=== PATIENT | female | born 2005 | race Caucasian/White ===

== ENCOUNTER 2025-06-01 20:52 | Emergency (ER) | payer BC, SELFPAY ==
[2025-06-01 20:54] VITALS: BP 101/69
[2025-06-01 21:38] VITALS: BP 105/71
[2025-06-01 21:44] VITALS: BMI 20.8
[2025-06-01 21:55] LABS: Hematocrit 34.9 % (37.0-47.0); Hemoglobin 12.3 g/dL (12.0-16.0); Mean Corp Hgb Conc. 35.2 g/dL (33.0-37.0); Mean Corpuscular Volume 85.1 fL (81.0-99.0); Nucleated Red Blood Cells % 0 %; Platelet Count 327 10^3/uL (130-400); Red Cell Dist. Width 12.9 % (11.5-14.5)
[2025-06-01 22:05] VITALS: BP 111/70
[2025-06-01 22:19] LABS: ALT (SGPT) 16 U/L (0-35); AST (SGOT) 20 U/L (14-36); Albumin 4.7 g/dl (3.5-5.0); Alkaline Phosphatase 57 U/L (38-126); Blood Urea Nitrogen 9 mg/dl (7-17); Calcium 9.9 mg/dl (8.4-10.2); Carbon Dioxide 23 mmol/L (22-30); Chloride 106 mmol/L (98-107); Estimated Creatinine Clearance 89 ml/min; Glucose 82 mg/dl (70-99); Potassium 4.2 mmol/L (3.5-5.1); Sodium 135 mmol/L (135-145); Total Protein 7.0 g/dl (6.3-8.2); eGFR > 60.00
--- NOTE | 2025-06-01 22:41 | ED.GENMED ---
History of Present Illness
General
Chief Complaint: Change in Mental Status
Source: patient
Exam Limitations: none
Time Seen by Provider: 06/01/25 22:23
History of Present Illness
History of Present Illness:
See MDM
Past History
Past History
ED Past Medical History: Psychiatric
ED Past Surgical History: None
Social History
Tobacco: Non-smoker
Alcohol: None
Phy Exam
Physical Exam
Physical Exam:
See MDM
Course
Orders/Labs/Results
Orders:
Orders
06/01/25 21:44
Complete Blood Count/With Diff Urgent
Comprehensive Metabolic Panel Routine
Wapella Urgent
Comment: ADD ON
Urinalysis Reflex To Culture Urgent
Date Specimen was Collected: 06/01/25
Time Specimen was Collected: 21:43
Comment: Clean Catch
Urine Microscopic Reflex Cult Urgent
Urine Culture Urgent
KRISHNA Source: U
Specimen Description:
Date Specimen was Collected: 06/01/25
Time Specimen was Collected: 21:43
06/01/25 22:41
CT Head W/o Iv Contrast Urgent
Comment:
Reason For Exam: intermittent confusion and headache
06/01/25 22:42
Lorazepam [Ativan] 1 mg PO NOW STA
06/01/25 22:46
Add On- LAB Urgent
Tests Added?: Wapella level
Abnormal Lab Results
06/01/25
21:44
WBC 11.4 H 10^3/uL
(4.8-10.8)
RBC 4.10 L 10^6/uL
(4.20-5.40)
Hct 34.9 L %
(37.0-47.0)
MPV 11.5 H fL
(7.4-10.4)
Absolute Neuts (auto) 7.8 H 10^3/uL
(1.4-6.5)
Absolute Monos (auto) 0.8 H 10^3/uL
(0.1-0.6)
Leukocyte Esterase Rfl 1+ A
(Negative)
Urine Bacteria (Reflex) Few A
(Negative)
06/01/25 21:44
06/01/25 21:44
Vital Signs
Initial and Last Documented VS:
Initial Vital Signs
Temp Pulse Resp BP Pulse Ox
98 F 73 16 101/69 98
06/01/25 20:54 06/01/25 20:54 06/01/25 20:54 06/01/25 20:54 06/01/25 20:54
Last Documented Vital Signs
Temp Pulse Resp BP Pulse Ox
98.4 F 71 11 106/72 98
06/02/25 01:03 06/02/25 00:56 06/02/25 00:56 06/02/25 00:55 06/01/25 23:49
MDM/Problems Addressed
Differential Diagnosis Includes:
Note:
CHIEF COMPLAINT(S)
- Memory issues, left-sided numbness, and feeling off balance for the last three days.
HISTORY OF PRESENT ILLNESS
The patient is a 19-year-old female who presents with complaints of memory difficulties, including incidents of speaking incoherently and forgetting tasks midway, which started approximately three days ago. She also reports numbness on her left side
and episodes of feeling unsteady, often feeling more comfortable walking backward than forward. The patient denies any prior similar episodes. She has felt clumsy and experiences intermittent blackouts or periods where she cannot recall events.
There is a concern about having a stroke, given her family history of her grandmother having strokes. Additional symptoms include anxiety and stress, though no specific recent stressors were identified.
PAST MEDICAL AND SURIGICAL HISTORY
The patient is undergoing treatment for bipolar disorder.
ADDITIONAL HISTORY OBTAINED FROM SOURCES OTHER THAN THE PATIENT
According to the patient�s boyfriend, she has been notably off, forgetting things frequently.
CHRONIC MEDICAL CONDITIONS SIGNIFICANTLY AFFECTING CARE
- Bipolar disorder
MEDICATIONS
- Wapella
- Prozac
REVIEW OF SYSTEMS
- Neurological: Memory difficulties, application of gibberish speech, left-sided numbness, instability while walking, clumsiness, and brief blackouts.
- Psychological: Experiencing anxiety.
- Musculoskeletal: Describes feeling unsteady particularly when trying to walk forward.
PHYSICAL EXAM
General: Alert, no acute distress.
Skin: Warm, dry.
Head: Normocephalic, atraumatic
Neck: Appears supple, trachea midline.
Eyes, Ears, Nose, Mouth, and Throat: Oral mucosa moist.
Cardiovascular: No signs of cyanosis. Regular rate and rhythm
Respiratory: Respirations are non-labored.
Abdomen: Non-distended
Musculoskeletal: No deformities. Normal finger-nose bilaterally. Negative Romberg
Neurological: No focal neurological deficit observed.
Psychiatric: Anxious
PLAN
- Obtain a Computed Tomography (CT) scan of the brain to rule out acute events such as a stroke or mass.
- Consider an outpatient Magnetic Resonance Imaging (MRI) if neurology consultation recommends, for further evaluation of any neurologic deficits.
- Discuss with primary care physician for further evaluation and management of anxiety and possible neurologic concerns.
- Administer an oral dose of a benzodiazepine for acute anxiety management.
- Educate patient about the importance of following up with primary care for comprehensive evaluation and management.
- Provide contact information for a primary care provider for continued care and assessment of symptoms.
DIFFERENTIAL DIAGNOSIS
The Differential Diagnosis includes, in no particular order and is not limited to:
1. Transient Ischemic Attack (TIA)
2. Stroke
3. Multiple Sclerosis
4. Transient Global Amnesia
5. Medication side effects (Wapella or Prozac)
6. Anxiety-related manifestations
7. Migraine-related sensory aura
8. Conversion disorder
9. Neuropathy
10. Seizure activity (partial or complex)
SUMMARY OF ENCOUNTER
The patient, a 19-year-old female, presented to the emergency department with symptoms of memory difficulties, speaking incoherently, left-sided numbness, and feeling off balance, all of which began three days prior. Her background includes
treatment with lithium and fluoxetine for bipolar disorder. A CT scan of the head was ordered and interpreted as normal, and blood work showed no abnormalities that could account for the symptoms. The possibility that the symptoms could be
attributed to mental health was discussed extensively with the patient. Recommendations were made to have these symptoms further evaluated by the primary care team, and the utility of an outpatient brain MRI was also discussed.
PLAN
The patient was advised to follow up with her primary care physician for comprehensive evaluation of her symptoms, particularly considering both mental health and neurological assessments. It was also recommended that an outpatient MRI of the brain
be considered, should her primary care provider or a neurologist deem it necessary.
PATIENT EDUCATION AND COUNSELING
The patient was educated on the significance of primary care follow-up to further address and evaluate her symptoms. Return precautions were explained, and the patient expressed that she feels comfortable returning home.
FOLLOW-UP INSTRUCTIONS
The patient was instructed to contact her primary care provider to schedule a follow-up appointment as soon as possible for further assessment and management of her symptoms.
MEDICATION RECONCILIATION
- Wapella
- Fluoxetine (Prozac)
MEDICAL DECISION MAKING
1. Number and Complexity of Problems Addressed: Chronic conditions affecting care include bipolar disorder. Differential Diagnosis: Transient Ischemic Attack (TIA), stroke, multiple sclerosis, transient global amnesia, medication side effects
(lithium or fluoxetine), anxiety-related manifestations, migraine-related sensory aura, conversion disorder, neuropathy, seizure activity (partial or complex).
2. Data:
Category 1
- My independent review of the CT scan reveals no acute events or focal abnormalities. Consideration of further imaging with an MRI was discussed but was decided to be pursued outpatient.
Category 2
- Clinical information corroborated by the patients boyfriend regarding memory lapses and unusual behavior.
Category 3
- Discussion of management with the primary care team was recommended for follow-up.
DIAGNOSIS
- Memory loss, unspecified (R41.3)
- Numbness (R20.2)
- Unsteadiness on feet (R26.89)
- Bipolar disorder, current episode manic without psychotic features (F31.10)
*Pulse Oximetry
SaO2: 98
Oxygen Mode of Delivery: Room air
Patient hypoxic: no
*Critical Care Note
Total Time (30-74mins, 75-104mins- exclusive of procedures): Not Applicable
ED Attending Note
-
Portions of this chart may have been created with voice recognition software.� Occasional wrong word or��sound alike� substitutions may have occurred due to the inherent limitations of voice recognition software.
Discharge Plan
Departure
Patient Disposition: Home (Routine Discharge)
Date of Disposition: 06/02/25
Time of Disposition: 00:37
Patient with high blood pressure during this ER visit?: No
Discharge Problem:
Confusion
Prescriptions:
No Action
fluoxetine [Prozac] 40 mg Capsule
80 mg PO DAILY
quetiapine [Seroquel] 100 mg Tablet
150 mg PO HS
lithium carbonate 450 mg Tablet Extended Release
450 mg PO HS
lithium carbonate 300 mg Tablet
300 mg PO AMHS
clonazepam [Klonopin] 0.25 mg Tablet,Disintegrating
0.25 mg PO BID
Vraylar 1.5 mg Capsule
1.5 mg PO DAILY
Referrals:
[facility] [Provider Group]
NONE,* [Family Provider, Internal Medicine]
Activity Restrictions/Additional Instructions:
Please return for any worsening symptoms.
You may return at any time if you have further concerns.
Please follow up with the family medicine clinic at the first available appointment, preferably this week. Please discuss your symptoms.
Thank you for choosing [facility].
Interventions
Interventions:
*Risk Screen - Suicide Last Done: 06/01/25 20:54
*General Assessment Last Done: 06/01/25 21:45
*Neglect/Abuse Screening Last Done: 06/01/25 20:54
*ED- Fall Risk Assessment Last Done: 06/01/25 21:45
*ED COVID-19 Vaccine History Last Done: 06/01/25 21:45
ED- Neurological Assessment Last Done: 06/01/25 21:46
ED Swallowing Screen Last Done: 06/01/25 21:55
Discharge Date and Time
Print Language: CHINESE
[2025-06-01 22:53] LABS: Lithium 0.9 mmol/L (0.6-1.2)
[2025-06-01] MEDS: ATIVAN 1 MG PO (22:54)
[2025-06-01 22:58] LABS: Urine Character Clear (Clear)
[2025-06-01 23:06] LABS: Urine Red Blood Cell 0-2 /HPF (0-2); Urine White Cell 0-2 /HPF (0-5)
[2025-06-02 00:55] VITALS: BP 106/72
== END 2025-06-02 01:24 | disposition home or self-care (01) ==
LOC: EMR 20:52
PROVIDERS: EMERGENCY PHYSICIAN Student in an Organized Health Care Education/Training Program
DX: R41.0 Disorientation, unspecified (principal); F31.10 Bipolar disorder, current episode manic without psychotic features, unspecified; F41.9 Anxiety disorder, unspecified; G93.5 Compression of brain; R32 Unspecified urinary incontinence
CPT/HCPCS: 99284; 70450; 80053; 80178; 81003; 81015; 85025; 87086